=== PATIENT | female | born 1975 | race Caucasian/White ===

== ENCOUNTER → 2025-02-17 | Day surgery (SDC) | payer MEDICAID ==
[2025-02-10 10:11] LABS: Urine Bacteria None Seen /hpf (None Seen)
[2025-02-10 10:21] LABS: Basophils # (auto) 0 10 ^3/uL (0-0.2); Basophils % (auto) 0.5 % (0.0-2.0); Eosinophils # (auto) 0.1 10 ^3/uL (0-0.8); Eosinophils % (auto) 2.5 % (0.0-7.0); Hematocrit 40.9 % (36.0-46.0); Lymphocytes # (auto) 0.7 10 ^3/uL (0.4-5.4); Lymphocytes % (auto) 15.1 % (10.0-50.0); Mean Corpuscular Hemoglobin 31.8 pg (28.0-32.0); Mean Corpuscular Hgb Conc. 34.2 g/dL (32.0-36.0); Mean Corpuscular Volume 92.8 fL (80.0-100.0); Monocytes # (auto) 0.4 10 ^3/uL (0-1.3); Monocytes % (auto) 8.7 % (0.0-12.0); Neutrophils # (auto) 3.4 10 ^3/uL (1.6-8.6); Neutrophils % (auto) 73.2 % (37.0-80.0); Platelet Count (auto) 196 10^3/uL (140-450); Red Blood Cells 4.41 10^6/uL (4.0-5.20); Red Cell Distribution Width 12.2 % (11.8-14.3); White Blood Cell 4.7 10^3/uL (4.4-10.8)
[2025-02-10 10:26] LABS: Urine Blood Negative /uL (Negative); Urine Clarity Clear (Clear); Urine Color Yellow (Yellow); Urine Mucus FEW (None Seen); Urine Protein, UAD Negative (Negative); Urine Specific Gravity 1.027 (1.001-1.035); Urine Squamous Epithelial Cell FEW /hpf (<5); Urine Urobilinogen Normal (Negative); Urine WBC 8 /HPF (0-5)
[2025-02-10 10:35] LABS: Partial Thromboplastin Time 29.3 SEC (24.5-34.5); Prothrombin Time 10.6 sec (9.3-11.8)
[2025-02-10 11:08] LABS: Alanine Aminotransferase 15 U/L (7-40); Albumin 4.7 g/dL (3.2-4.8); Alkaline Phosphatase 75 U/L (46-116); Anion Gap 8 (5-15); BUN/Creatinine Ratio 25.4 (10.0-20.0); Bilirubin, Total 0.4 mg/dL (0.2-1.0); Blood Urea Nitrogen 15 mg/dL (9-23); Calcium 10.1 mg/dL (8.7-10.4); Carbon Dioxide 28 mmol/L (20-31); Glucose 85 mg/dL (74-106); Potassium 4.2 mmol/L (3.5-5.1); Sodium 143 mmol/L (136-145); Total Protein 6.6 g/dL (5.7-8.2)
[2025-02-10 11:17] LABS: Chloride 107 mmol/L (98-107)
[2025-02-10 11:37] LABS: Aspartate Aminotransferase 13 U/L (13-40)
[~2025-02-17] VITALS: Ht 167.6 cm; Wt 81.2 kg
[~2025-02-17] MED LIST: ATOR20TA50 PO; CALC1TAB92 PO; CHOL62.52 PO; CYAN1TAB14 PO; DexAMETHasone SOD PHOS 10MG/1ML VIAL INJ ONE; FLUT1SPR5; GABA-1308 PO; GLYCOPYRROLATE 0.2 MG/ML 1ML VIAL ONE; IBUP100S11 GT; KETAMINE 50mg/ML 1ml syringe ONE; KETOROLAC TROMETH 30 MG/ML 1ML VIAL ONE; LIDOCAINE 1% INJ PF 5ML AMP ONE; LINA290C OR; LORA5SYP23 PO; MULT-1054 PO; OMEP20TA PO; ONDANSETRON HCL 4 MG/2 ML VIAL ONE; OXYM-15; PHYT100T PO; PREN-96 PO; PROPOFOL 10 MG/ML 20 ML IV ONE; SUCR1TAB31 OR; TRAM50TA2; TRAZ-228 PO; VENL1TAB97 PO; ceFAZolin 1GM/50ML 100 ML IV ONE
[2025-02-17] MEDS: BUPIVACAINE 0.5% MPF INJ 30ML SDV IJ ONE (14:51)
--- NOTE | 2025-02-17 15:05 | DVHOP2 ---
Operative Report - 2 Report Details Date: 02/17/25 Preop Diagnosis: 1. Right hallux exostosis 2. Right second toe exostosis 3. Right third toe exostosis 4. Right fourth toe exostosis 5. Left second toe exostosis 6. Left fifth toe exostosis 7. Bilateral foot pain Postop Diagnosis: Bilateral exostoses Surgeon: Gloria Sales MD Anesthesiologist: See anesthesia Anesthesia: Mac Consent: The patient was informed of the risks and benefits of the procedure. These include but are not limited to complications of anesthesia, postoperative infection, incomplete relief of symptoms, recurrence of symptoms, damage to blood vessels, nerves and tendons, deep venous thrombosis, pulmonary embolism and possible need for repeat surgery in the future. Complications: None Estimated Blood Loss: Minimal Fluids: See anesthesia Findings: Consistent with diagnosis Indications for Surgery: Worsening bilateral foot pain Name of Procedure Performed 1. Right hallux exostectomy (01071) 2. Right second toe exostectomy(08736) 3. Right third toe exostectomy(12287) 4. Right fourth toe exostectomy(67285) 5. Left second toe exostectomy(97004) 6. Left fifth toe exostectomy(75080) Procedure Details Procedure Details: PRE-PROCEDURE INFORMATION: In the pre-op holding area, the extremity to be operated on was clearly marked and the patient verified correct laterality of the marking. The patient was transferred to the OR table and placed in a supine position. A timeout was performed in which identification of the correct patient, procedure, location, and materials was done. The bilateral foot and leg were prepped and draped in normal sterile fashion. DESCRIPTION OF PROCEDURE: Attention was directed to the left 5th digit where the exostosis was located. A stab incision was made just medial to the 5th digit. The incision was deepened through blunt and sharp dissection. Care was taken to avoid any neurovascular and tendinous structures. Using the Arthrex MIS bur, the exostosis was then removed in its entirety. After the bur was used the exostosis was no longer felt clinically. The incision was closed with a 4-0 nylon. Attention was directed to the left 2nd digit where the exostosis was located. A stab incision was made just medial to the 2nd digit. The incision was deepened through blunt and sharp dissection. Care was taken to avoid any neurovascular and tendinous structures. Using the Arthrex MIS bur, the exostosis was then removed in its entirety. After the bur was used the exostosis was no longer felt clinically. The incision was closed with a 4-0 nylon. Attention was directed to the right 1st digit where the exostosis was located. A stab incision was made just medial to the 1st digit. The incision was deepened through blunt and sharp dissection. Care was taken to avoid any neurovascular and tendinous structures. Using the Arthrex MIS bur, the exostosis was then removed in its entirety. After the bur was used the exostosis was no longer felt clinically. The incision was closed with a 4-0 nylon. Attention was directed to the right 2nd digit where the exostosis was located. A stab incision was made just medial to the 2nd digit. The incision was deepened through blunt and sharp dissection. Care was taken to avoid any neurovascular and tendinous structures. Using the Arthrex MIS bur, the exostosis was then removed in its entirety. After the bur was used the exostosis was no longer felt clinically. The incision was closed with a 4-0 nylon. Attention was directed to the right 3rd digit where the exostosis was located. A stab incision was made just medial to the 3rd digit. The incision was deepened through blunt and sharp dissection. Care was taken to avoid any neurovascular and tendinous structures. Using the Arthrex MIS bur, the exostosis was then removed in its entirety. After the bur was used the exostosis was no longer felt clinically. The incision was closed with a 4-0 nylon. Attention was directed to the right 4th digit where the exostosis was located. A stab incision was made just medial to the 4th digit. The incision was deepened through blunt and sharp dissection. Care was taken to avoid any neurovascular and tendinous structures. Using the Arthrex MIS bur, the exostosis was then removed in its entirety. After the bur was used the exostosis was no longer felt clinically. The incision was closed with a 4-0 nylon. All surgical wounds were irrigated copiously with saline and closed in layers with the aforementioned suture material. A dry sterile dressing was placed on the surgical extremity. The patient was placed in a post op shoe. POSTOPERATIVE INFORMATION: The patient tolerated the above noted procedure and anesthesia well and was transferred to the PACU with vital signs stable, and vascular status intact with capillary refill intact to all digits. Postoperative instructions reviewed in detail with the patient with written instructions provided. Patient will return to clinic in approximately 10-14 days for first postoperative visit. Patient has the number of the clinic and was instructed to call prior to that time should any problems, questions, or concerns arise. Condition Good Disposition Home GLORIA SALES DPM Feb 17, 2025 15:05
[2025-02-17 15:06] VITALS: PULSE 73; RESP 15; TEMP 98.7; O2SAT 97
[2025-02-17 15:16] VITALS: PULSE 68; RESP 14; O2SAT 100
[2025-02-17] MEDS: KETOROLAC TROMETH 30 MG/ML 1ML VIAL IV ONE (16:10)
[2025-02-17] MEDS: oxyCODONE HCL 5MG TAB PO PRN (16:12)
[2025-02-17 16:21] VITALS: BP 114/76; PULSE 67; RESP 13; O2SAT 97
== END | disposition home or self-care (01) ==
LOC: SUR 11:28
PROVIDERS: ATTEND Podiatrist
DX: M89.8X7 Other specified disorders of bone, ankle and foot (principal); E66.3 Overweight; G89.29 Other chronic pain; F41.9 Anxiety disorder, unspecified; E78.00 Pure hypercholesterolemia, unspecified; Z86.2 Personal history of diseases of the blood and blood-forming organs and certain disorders involving the immune mechanism; Z79.899 Other long term (current) drug therapy; Z88.0 Allergy status to penicillin; Z88.8 Allergy status to other drugs, medicaments and biological substances
CPT/HCPCS: 28124; 36415; 80053; 81001; 84702; 85025; 85610; 85730; J0690; J1100; J1885; J2405; J2704; J3490